=== PATIENT | male | born 1955 | race Caucasian/White ===

== ENCOUNTER 2018-02-23 14:21 | Emergency (ER) | payer MEDICARE, BC ==
[~2018-02-23] VITALS: Ht 177.8 cm; Wt 113.6 kg
[2018-02-23 14:29] VITALS: Ht 177.8 cm; Wt 113.6 kg
[2018-02-23] MEDS ORDERED: COREG12.5 MG PO (14:30)
[2018-02-23] MEDS ORDERED: XARELTO20 MG PO (14:30)
[2018-02-23 16:56] VITALS: BP 162/78
== END 2018-02-23 16:57 | disposition home or self-care (01) ==
LOC: D.ER 14:21
DX: S01.01XA Laceration without foreign body of scalp, initial encounter (principal); W22.8XXA Striking against or struck by other objects, initial encounter; Y93.89 Activity, other specified; Y92.89 Other specified places as the place of occurrence of the external cause